=== PATIENT | male | born 1950 | race Caucasian/White ===

== ENCOUNTER 2017-05-03 15:08 | Inpatient (IN) | payer OTHER ==
[~2017-05-03] VITALS: Ht 162.6 cm; Wt 72.7 kg
[~2017-05-03 15:08] MED LIST: APR10 PO; COR200 PO; COR6 PO; FERROUS SULFAT325 M2 PO; GOOD SENSE ASPI81 M3 PO; LIPI10 PO
[2017-05-03 16:28] LABS: BASOPHIL % 0 % (0-2); PLATELET COUNT 80 x10^3mcL (130-400); RED CELL DISTRIBUTION WIDTH 21.1 % (11.5-14.5)
[2017-05-03 16:43] LABS: BILIRUBIN TOTAL 1.24 mg/dL (0.20-1.00); CALCIUM 8.5 mg/dL (8.5-10.1); CARBON DIOXIDE 25.4 mmol/L (21-32); MAGNESIUM 2.4 mg/dL (1.8-2.4); POTASSIUM SERUM 4.5 mmol/L (3.5-5.1); TOTAL PROTEIN, SERUM 7.3 g/dL (6.4-8.2)
[2017-05-03 16:46] LABS: ALBUMIN 2.3 g/dL (3.4-5.0)
[2017-05-03 16:48] LABS: CREATININE SERUM 4.4 mg/dL (0.7-1.3)
[2017-05-03 16:50] LABS: T3 TOTAL 0.51 ng/mL; rbc morphology (normal/abnorm) ABNORMAL (NORMAL)
[2017-05-03 17:00] LABS: microscopic required? NO
[2017-05-03 17:20] LABS: FREE T4 2.12 ng/dL (0.76-1.46); T4(THYROXINE) 13.1 ug/dL (4.7-13.3)
[2017-05-03 17:23] LABS: PHOSPHOROUS 5.7 mg/dL (2.5-4.9)
[2017-05-03 17:24] LABS: CHOLESTEROL/HDL RATIO 2.3
[2017-05-03 17:26] LABS: UA SPECIFIC GRAVITY 1.015 (1.005-1.035); urine erythrocyte NEGATIVE (NEGATIVE)
[2017-05-03 17:31] VITALS: BP 104/70
[2017-05-03 17:37] LABS: AMPHETAMINE QUAL UR NONE DETECTED (NEG <=1000)
[2017-05-03 18:02] LABS: TOTAL IRON BINDING CAPACITY 316 ug/dL (250-450)
[2017-05-03 18:07] LABS: IRON 23 ug/dL (65-170)
[2017-05-03 18:26] VITALS: BP 104/70
[2017-05-03 18:28] LABS: RED BLOOD CELLS 4.18 M/mm3 (4.52-5.90)
[2017-05-03 22:09] VITALS: BP 106/69
[2017-05-04 05:04] VITALS: BP 113/65
[2017-05-04 07:44] LABS: BASOPHIL % 0.2 % (0-2)
[2017-05-04 07:50] LABS: PLATELET COUNT 74 x10^3mcL (130-400)
[2017-05-04 07:51] LABS: rbc morphology (normal/abnorm) ABNORMAL (NORMAL)
[2017-05-04 09:27] LABS: CALCIUM 8.2 mg/dL (8.5-10.1); CARBON DIOXIDE 24.7 mmol/L (21-32); MAGNESIUM 2.4 mg/dL (1.8-2.4); PHOSPHOROUS 4.7 mg/dL (2.5-4.9)
[2017-05-04 10:21] VITALS: BP 108/69
[2017-05-04 10:23] LABS: CREATININE SERUM 4.4 mg/dL (0.7-1.3)
[2017-05-04 13:02] VITALS: BP 115/71
[2017-05-04 17:22] VITALS: BP 119/76
[2017-05-04 21:31] VITALS: BP 122/70
[2017-05-05 05:54] VITALS: BP 115/66
[2017-05-05 07:10] LABS: CALCIUM 8.2 mg/dL (8.5-10.1); CARBON DIOXIDE 26.4 mmol/L (21-32); MAGNESIUM 2.3 mg/dL (1.8-2.4); PHOSPHOROUS 3.8 mg/dL (2.5-4.9); POTASSIUM SERUM 3.8 mmol/L (3.5-5.1)
[2017-05-05 07:14] LABS: CREATININE SERUM 4.4 mg/dL (0.7-1.3)
[2017-05-05 07:30] LABS: PLATELET COUNT 94 x10^3mcL (130-400)
[2017-05-05 09:07] VITALS: BP 110/61
[2017-05-05 12:29] LABS: ATYPICAL LYMPH 3 %; BAND NEUTROPHIL 0 % (0-10); BASOPHIL 0 % (0-2); MONOCYTE 3 % (0-7); SEGMENTED NEUTROPHILS 89 % (37-75)
[2017-05-05 12:30] LABS: PLATELET MORPHOLOGY PLATELETS DECREASED; rbc morphology (normal/abnorm) ABNORMAL (NORMAL)
[2017-05-05 13:24] VITALS: BP 122/71
[2017-05-05 16:28] VITALS: BP 108/69
[2017-05-05 21:27] VITALS: BP 115/69
[2017-05-06] VITALS (7 sets, daily range): BP systolic 110–121; BP diastolic 66–73
[2017-05-06 06:33] LABS: BASOPHIL % 0.1 % (0-2)
[2017-05-06 06:44] LABS: PLATELET COUNT 113 x10^3mcL (130-400); RED CELL DISTRIBUTION WIDTH 21.1 % (11.5-14.5)
[2017-05-06 06:51] LABS: CALCIUM 8.7 mg/dL (8.5-10.1); CARBON DIOXIDE 25.9 mmol/L (21-32); MAGNESIUM 2.4 mg/dL (1.8-2.4); PHOSPHOROUS 3.1 mg/dL (2.5-4.9)
[2017-05-07 05:24] VITALS: BP 119/63
[2017-05-07 06:04] LABS: BASOPHIL % 0.1 % (0-2)
[2017-05-07 06:32] LABS: CALCIUM 8.3 mg/dL (8.5-10.1); CARBON DIOXIDE 29.5 mmol/L (21-32); MAGNESIUM 2.4 mg/dL (1.8-2.4); PHOSPHOROUS 3.1 mg/dL (2.5-4.9); POTASSIUM SERUM 4.1 mmol/L (3.5-5.1)
[2017-05-07 06:45] LABS: CREATININE SERUM 4.1 mg/dL (0.7-1.3)
[2017-05-07 06:50] LABS: PLATELET COUNT 112 x10^3mcL (130-400); RED CELL DISTRIBUTION WIDTH 20.7 % (11.5-14.5)
[2017-05-07 06:51] LABS: rbc morphology (normal/abnorm) ABNORMAL (NORMAL)
[2017-05-07 09:48] VITALS: BP 111/70
[2017-05-07 12:35] VITALS: BP 114/67
[2017-05-07] MEDS ORDERED: TAM75 PO (13:19)
[2017-05-07 17:57] VITALS: BP 108/61
[2017-05-07 21:36] VITALS: BP 121/70
[2017-05-08 05:29] VITALS: BP 131/68
[2017-05-08 08:00] VITALS: BP 110/65
[2017-05-08 13:50] VITALS: BP 108/62
[2017-05-08 15:53] LABS: CALCIUM 8.3 mg/dL (8.5-10.1)
[2017-05-08 16:08] LABS: CREATININE SERUM 4.2 mg/dL (0.7-1.3)
[2017-05-08 17:35] VITALS: BP 106/67
[2017-05-08 20:40] VITALS: BP 104/63
[2017-05-09 05:53] VITALS: BP 113/72
[2017-05-09] MEDS ORDERED: LAC30L PO (05:54)
[2017-05-09] MEDS ORDERED: PHOS PO (05:54)
[2017-05-09] MEDS ORDERED: L40 PO (05:54)
[2017-05-09 06:00] LABS: BASOPHIL % 0.3 % (0-2); PLATELET COUNT 161 x10^3mcL (130-400)
[2017-05-09 06:09] LABS: RED CELL DISTRIBUTION WIDTH 22.2 % (11.5-14.5)
[2017-05-09 06:30] LABS: CALCIUM 8.8 mg/dL (8.5-10.1); CARBON DIOXIDE 28.5 mmol/L (21-32); MAGNESIUM 2.5 mg/dL (1.8-2.4); PHOSPHOROUS 4.1 mg/dL (2.5-4.9)
[2017-05-09 06:34] LABS: CREATININE SERUM 4.5 mg/dL (0.7-1.3)
[2017-05-09 06:49] VITALS: BP 113/72
[2017-05-09 09:08] LABS: rbc morphology (normal/abnorm) ABNORMAL (NORMAL)
[2017-05-09 09:09] LABS: acanthocyte (spur cell) 1+
[2017-05-09 09:10] LABS: tear drop cell (dacryocyte) 1+
== END 2017-05-09 08:50 | disposition home or self-care (01) | DRG 682 ==
LOC: ED 15:08 → DU 15:51
PROVIDERS: Emergency Medicine; Family Medicine; Internal Medicine Nephrology; Student in an Organized Health Care Education/Training Program; Surgery
PROC: 0WHG33Z Insertion of Infusion Device into Peritoneal Cavity, Percutaneous Approach (ICD-10-PCS; principal; 2017-05-07 10:30)
DX: N17.0 Acute kidney failure with tubular necrosis (principal); I50.43 Acute on chronic combined systolic (congestive) and diastolic (congestive) heart failure; E43 Unspecified severe protein-calorie malnutrition; J96.00 Acute respiratory failure, unspecified whether with hypoxia or hypercapnia; I13.2 Hypertensive heart and chronic kidney disease with heart failure and with stage 5 chronic kidney disease, or end stage renal disease; E87.1 Hypo-osmolality and hyponatremia; K92.2 Gastrointestinal hemorrhage, unspecified; I42.9 Cardiomyopathy, unspecified; N17.9 Acute kidney failure, unspecified; N18.5 Chronic kidney disease, stage 5; K21.9 Gastro-esophageal reflux disease without esophagitis; Z95.810 Presence of automatic (implantable) cardiac defibrillator; Z82.49 Family history of ischemic heart disease and other diseases of the circulatory system; E78.00 Pure hypercholesterolemia, unspecified; Z82.3 Family history of stroke; Z80.9 Family history of malignant neoplasm, unspecified; E78.2 Mixed hyperlipidemia; R74.0 Nonspecific elevation of levels of transaminase and lactic acid dehydrogenase [LDH]; E83.39 Other disorders of phosphorus metabolism; J11.1 Influenza due to unidentified influenza virus with other respiratory manifestations; E11.65 Type 2 diabetes mellitus with hyperglycemia; E11.22 Type 2 diabetes mellitus with diabetic chronic kidney disease; D69.6 Thrombocytopenia, unspecified; D63.1 Anemia in chronic kidney disease; E11.21 Type 2 diabetes mellitus with diabetic nephropathy; Z86.010 Personal history of colon polyps; F10.21 Alcohol dependence, in remission; Z68.27 Body mass index [BMI] 27.0-27.9, adult
CPT/HCPCS: 36600; 82962; 83880; 84439; 86803; 87804; 94150; J1644; J1940; J1956; J2250; J2270; J2916; J3010; J3490; J7030; J7040; J7620; Q0092

== ENCOUNTER 2017-07-12 09:17 | Observation (INO) | payer OTHER ==
[~2017-07-12] VITALS: Ht 165.1 cm; Wt 65.3 kg
[~2017-07-12 09:17] MED LIST changes: +L40 PO; +LAC30L PO; +PHOS PO; +TAM75 PO
[2017-07-12 09:45] VITALS: BP 128/73
[2017-07-12 14:48] VITALS: BP 133/75
[2017-07-12 16:06] LABS: CHOLESTEROL/HDL RATIO 1.7
[2017-07-12 16:11] LABS: T3 TOTAL 0.76 ng/mL
[2017-07-12 16:14] LABS: FREE T4 1.63 ng/dL (0.76-1.46); FREE THYROXINE INDEX 4.4 ug/dL (1.4-4.5); T4(THYROXINE) 12.3 ug/dL (4.7-13.3)
[2017-07-12 17:27] VITALS: BP 117/72
[2017-07-12] MEDS ORDERED: LASIX40 MG PO (18:06)
[2017-07-12 20:45] VITALS: BP 113/68
[2017-07-13 00:44] LABS: microscopic required? NO
[2017-07-13 01:59] LABS: urine erythrocyte NEGATIVE (NEGATIVE)
[2017-07-13 06:05] VITALS: BP 108/61
[2017-07-13 06:25] LABS: BASOPHIL % 0.5 % (0-2); PLATELET COUNT 163 x10^3mcL (130-400)
[2017-07-13 06:43] LABS: CALCIUM 8.7 mg/dL (8.5-10.1); CARBON DIOXIDE 28.1 mmol/L (21-32); MAGNESIUM 2.2 mg/dL (1.8-2.4); PHOSPHOROUS 4.8 mg/dL (2.5-4.9); POTASSIUM SERUM 3.9 mmol/L (3.5-5.1)
[2017-07-13 07:13] LABS: RED CELL DISTRIBUTION WIDTH 21.4 % (11.5-14.5)
[2017-07-13 07:14] LABS: rbc morphology (normal/abnorm) ABNORMAL (NORMAL)
[2017-07-13 08:12] LABS: CREATININE SERUM 4.2 mg/dL (0.7-1.3)
[2017-07-13 08:43] VITALS: BP 107/69
[2017-07-13 11:27] VITALS: BP 107/69
[2017-07-13 12:39] VITALS: BP 113/71
[2017-07-13 17:48] VITALS: BP 124/73
== END 2017-07-13 19:33 | disposition home or self-care (01) | DRG 264 ==
LOC: DS 09:17 → OR 11:00 → MU 14:38 → DU 14:38 → MU 07-13 08:25
PROVIDERS: Family Medicine; Surgery
PROC: 031B0ZF Bypass Right Radial Artery to Lower Arm Vein, Open Approach (ICD-10-PCS; principal; 2017-07-12 11:00)
PROC: 5A1D70Z Performance of Urinary Filtration, Intermittent, Less than 6 Hours Per Day (ICD-10-PCS; 2017-07-13)
DX: I13.2 Hypertensive heart and chronic kidney disease with heart failure and with stage 5 chronic kidney disease, or end stage renal disease (principal); N18.6 End stage renal disease; N17.0 Acute kidney failure with tubular necrosis; I50.20 Unspecified systolic (congestive) heart failure; I42.9 Cardiomyopathy, unspecified; E11.40 Type 2 diabetes mellitus with diabetic neuropathy, unspecified; E11.22 Type 2 diabetes mellitus with diabetic chronic kidney disease; E83.39 Other disorders of phosphorus metabolism; M47.894 Other spondylosis, thoracic region; E78.5 Hyperlipidemia, unspecified; D64.9 Anemia, unspecified; Z99.2 Dependence on renal dialysis; Z95.810 Presence of automatic (implantable) cardiac defibrillator
CPT/HCPCS: 82962; 83880; 84439; A4719; C9113; G0378; J0690; J1644; J1940; J2001; J2405; J2704; J3010; J7030; P9047; Q0092

== ENCOUNTER 2017-09-06 09:12 | Day surgery (SDC) | payer OTHER ==
[~2017-09-06] VITALS: Ht 165.1 cm; Wt 65.3 kg
[~2017-09-06 09:12] MED LIST changes: +LASIX40 MG PO
[2017-09-06 09:47] VITALS: BP 129/77
[2017-09-06 14:14] VITALS: BP 133/72
== END 2017-09-06 14:10 | disposition home or self-care (01) ==
LOC: DS 09:12 → OR 11:00 → DS 11:00
PROVIDERS: Surgery
PROC: 0WPG4YZ Removal of Other Device from Peritoneal Cavity, Percutaneous Endoscopic Approach (ICD-10-PCS; principal; 2017-09-06 11:00)
DX: N18.6 End stage renal disease (principal); I13.11 Hypertensive heart and chronic kidney disease without heart failure, with stage 5 chronic kidney disease, or end stage renal disease; I43 Cardiomyopathy in diseases classified elsewhere; J44.9 Chronic obstructive pulmonary disease, unspecified; E78.5 Hyperlipidemia, unspecified; Z95.0 Presence of cardiac pacemaker; Z99.2 Dependence on renal dialysis; M06.9 Rheumatoid arthritis, unspecified
CPT/HCPCS: J0330; J0690; J2250; J2704; J3010; J3490; J7030